=== PATIENT | female | born 2000 | race Caucasian/White ===

== ENCOUNTER 2022-11-05 00:46 | Emergency (ER) | payer OTHER, SELFPAY ==
[2022-11-05 00:58] VITALS: BP 105/64; PULSE 65; RESP 18; TEMP 36.8; O2SAT 99; BMI 22.3
[2022-11-05 01:07] VITALS: RESP 16; O2SAT 98
--- NOTE | 2022-11-05 01:44 | ED_ITS ---
HPI - General Adult General Chief complaint: Unspecified Complaint, Adult Stated complaint: white pus bump that hurts on her L arm Time Seen by Provider: 11/05/22 00:51 Source: patient Mode of arrival: ambulatory History of Present Illness HPI narrative: Tearful 22-year-old female presents the emergency department with a 3 mm tiny pustule on her left forearm. Denies trauma or injury. When I ask what had her so concerned to come to an emergency department for this, she reports that she could not sleep due to the pain. She did not try taking any Tylenol or ibuprofen. Denies any insect bite, no fevers or systemic illness. No diffi culty moving shoulder, elbow or wrist. No prior history of similar infection. She is not immunocompromised. No other associated similar lesions. Past medical history states is benign, no major long-term health problems, no recent surgeries. No long-term medications or allergies. ROS notable for the skin symptoms as above, otherwise denies any other musculoskeletal, skin, generalized concerns today. Related Data Home Medications Medication Instructions Recorded Confirmed No Known Home Medications 11/05/22 11/05/22 Allergies Allergy/AdvReac Type Severity Reaction Status Date / Time No Known Drug Allergies Allergy Verified 11/05/22 01:00 [facility] Medical History (Updated 11/05/22 @ 01:30 by Samantha Aaron MD) No significant past medical history Surgical History (Updated 11/05/22 @ 01:08 by Jonah Le RN) No significant past surgical history Social History Smoking Status: Never smoker Second hand tobacco smoke exposure: No How often do you have a drink containing alcohol: never How often do you have six or more drinks on one occasion: Never AUDIT-C Alcohol total score: 0 Non-prescribed substance use: denies use Exam Const: Vital Signs, click to edit/add: Vital Signs - 24 hr 11/05/22 00:58 11/05/22 01:07 Temperature 98.2 F Pulse Rate [Left P ulse Oximeter] 65 Respiratory Rate 18 Respiratory Rate [ Left Arm] 16 Blood Pressure [Ri ght Upper Arm] 105/64 Pulse Oximetry 99 Oxygen Delivery Me thod Room Air Documenting provider has reviewed patient's vital signs: yes Other: Tearful, anxious. Cooperative with exam. HENMT: Common normals: normocephalic Head and scalp: normocephalic Face and sinus: normal facial exam Eye: General eye: normal appearance of both eyes Resp: Common normals: normal respiratory effort, no use of accessory muscles and clear to auscultation bilaterally Effort & inspection: able to speak in complete sentences Auscultation: clear to auscultation bilaterally Cardio: Common normals: regular rate, regular rhythm, S1 normal heart sound, S2 normal heart sound and no murmurs Rate: regular rate Rhythm: regular rhythm Heart sounds: S1 normal and S2 normal Extremity: Other: 3 mm pustule, confined to the epidermis only, perfectly circumscribed with 1-2 mm of surrounding redness on left dorsal forearm. No surrounding bruising or signs of obvious injury. No surrounding streaking or swelling. Normal range of motion of wrist, elbow. No associated lymphadenopathy. Psych: Other: Anxious but judgment and insight seem fair. Skin: Narrative: No other lesions besides the tiny pustule in question. Course Course Hospital Course: Differential diagnosis including cellulitis, abscess, pustule, foreign body, insect bite, septic arthritis, among others. Discussed risks and benefits of drainage. I think that this will make her feel significantly better. Areas wiped with alcohol wipe and then using an 18 gauge needle, gently unroofed with purulent drainage of less than 1 mm. No underlying foreign body is seen. Underlying dermis appears perfectly normal. Covered in antibiotic ointment and Band-Aid. Counseled on use of [id number] Tylenol and ibuprofen as needed for pain. Leave current Band-Aid on for 24 hours, then may remove, wash and recover with Band-Aid if needed. Should close within 2-3 days. Alarm symptoms such as cellulitis, inability to move elbow, signs of sepsis reviewed with patient as indications to come to ED. She verbalizes understanding and agreement. Vital Signs Vital signs: Initial Vital Signs Temperature 98.2 F 11/05/22 00:58 Temperature Source Temporal Artery Scan 11/05/22 00:58 Pulse Rate 65 11/05/22 00:58 Respiratory Rate 18 11/05/22 00:58 Blood Pressure 105/64 11/05/22 00:58 Blood Pressure Mean 77 11/05/22 00:58 Blood Pressure Position Sitting 11/05/22 00:58 Pulse Oximetry 99 11/05/22 00:58 Oxygen Delivery Method Room Air 11/05/22 00:58 Vital Signs Temperature 98.2 F 11/05/22 00:58 Pulse Rate 65 11/05/22 00:58 Respiratory Rate 18 11/05/22 00:58 Blood Pressure 105/64 11/05/22 00:58 Pulse Oximetry 99 11/05/22 00:58 Oxygen Delivery Method Room Air 11/05/22 00:58 Temperature 98.2 F 11/05/22 00:58 Pulse Rate 65 11/05/22 00:58 Respiratory Rate 16 11/05/22 01:07 Blood Pressure 105/64 11/05/22 00:58 Pulse Oximetry 99 11/05/22 00:58 Oxygen Delivery Method Room Air 11/05/22 00:58 Discharge Plan Discharge Clinical Impression: Skin pustule Patient Disposition: Home, Self-Care Condition: Improved Instructions: Acute Wounds (DC) Additional Instructions: As we discussed, the tiny pustule on your skin is a sign of a simple bacteria infection. Often this starts with an ingrown hair or small insect bite. The tiny pustule was gently unroofed, covered in antibiotic ointment and a Band-Aid. Please leave this Band-Aid on for 24 hours. After 24 hours, you may remove, showers usual. You may continue applying a fresh Band-Aid every 24 hours as you like. There are no signs of any deeper seated infection, abscess, foreign body or other abnormality. This is very unlikely to cause any systemic infection. If you start running high fevers, have severe weakness, significant swelling of the entire arm and or streaking far above the elbow, come back to the emergency department. You may resume all work and or school activities as normal with no restrictions. Activity Level: No Restrictions Discharge Diet: Regular Prescriptions: No Action No Known Home Medications Stand Alone Forms: [employer] Info Instructions
[2022-11-05 01:50] VITALS: BP 111/74; PULSE 65; RESP 18; TEMP 36.8; O2SAT 99
[2022-11-05 01:53] VITALS: BP 111/74; PULSE 65; RESP 18; TEMP 36.8
== END 2022-11-05 01:54 | disposition home or self-care (01) ==
PROVIDERS: Emergency Provider Family Medicine
DX: L08.9 Local infection of the skin and subcutaneous tissue, unspecified (principal)
CPT/HCPCS: 99282; 99283